=== PATIENT | male | born 2000 | race Caucasian/White ===

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

== ENCOUNTER 2019-10-05 11:31 | Emergency (ER) | payer SELFPAY ==
[~2019-10-05 11:31] MED LIST changes: +AUGMENTIN400 MG/5 M PO; +TAMIFLU 75MG CA75 MG PO
[2019-10-05] MEDS ORDERED: NAPROSYN500 MG PO (13:02)
[2019-10-05] MEDS ORDERED: TYLENOL325 M1 PO (13:02)
== END 2019-10-05 13:14 | disposition home or self-care (01) ==
LOC: ED 11:31
DX: R07.89 Other chest pain (principal); R06.02 Shortness of breath; R05 Cough; Z88.8 Allergy status to other drugs, medicaments and biological substances; Z79.899 Other long term (current) drug therapy; Z79.2 Long term (current) use of antibiotics

== ENCOUNTER 2020-10-02 13:10 | Emergency (ER) | payer OTHER ==
[~2020-10-02] VITALS: Wt 78.5 kg
[~2020-10-02 13:10] MED LIST changes: +NAPROSYN500 MG PO; +TYLENOL325 M1 PO
[2020-10-02] MEDS ORDERED: ALLEGRA ALLERG180 M2 PO (13:36)
[2020-10-02] MEDS ORDERED: PROVENTIL HFA6.7 GM INH (13:36)
[2020-10-02] MEDS ORDERED: SINGULAIR10 M1 PO (13:36)
== END 2020-10-02 13:38 | disposition home or self-care (01) ==
LOC: ED 13:10
DX: J45.909 Unspecified asthma, uncomplicated (principal); Z88.8 Allergy status to other drugs, medicaments and biological substances; Z79.899 Other long term (current) drug therapy; Z98.890 Other specified postprocedural states

== ENCOUNTER 2022-01-24 07:35 | Emergency (ER) | payer OTHER ==
[~2022-01-24] VITALS: Ht 165.1 cm; Wt 87.1 kg
[~2022-01-24 07:35] MED LIST changes: +ALLEGRA ALLERG180 M2 PO; +PROVENTIL HFA6.7 GM INH; +SINGULAIR10 M1 PO
== END 2022-01-24 09:52 | disposition home or self-care (01) ==
LOC: ED 07:35
DX: J06.9 Acute upper respiratory infection, unspecified (principal); Z20.822 Contact with and (suspected) exposure to COVID-19

== ENCOUNTER → 2022-06-07 | Outpatient (CLI) | payer OTHER ==
[2022-06-07 07:42] LABS: BASO # 0.1 10*3/uL (0.0-0.1); BASO % 0.7 % (0.0-1.0); EOS # 0.5 10*3/uL (0.0-0.4); EOS % 4.3 % (1.0-4.0); HEMATOCRIT 47.6 % (42.0-52.0); LYMPH # 3.8 10*3/uL (1.3-4.4); LYMPH % 32.3 % (27.0-41.0); MEAN CORPUSCULAR HGB 29.1 pg (27.0-31.0); MEAN CORPUSCULAR HGB CONC 34.7 g/dl (33.0-37.0); MEAN PLATELET VOLUME 9.2 fl (9.6-12.3); MONO # 0.8 10*3/uL (0.1-1.0); MONO % 6.6 % (3.0-9.0); NEUT # 6.6 10*3/uL (2.3-7.9); NEUT % 55.8 % (47.0-73.0); PLATELET COUNT AUTOMATED 348 10*3/uL (130-400); RED BLOOD COUNT 5.67 10*6/uL (4.50-5.90); RED CELL DISTRI WIDTH 12.2 % (0-14.5); WHITE BLOOD COUNT 11.8 10*3/uL (4.8-10.8)
[2022-06-07 08:16] LABS: ALKALINE PHOSPHATASE 98 U/L (45-117); BUN 11 mg/dl (7-24); CHLORIDE 107 mmol/L (98-107); CHOLESTEROL 158 mg/dL (<200); CREATININE 1.06 mg/dL (0.70-1.30); LDL CHOLESTEROL 78 mg/dL (9-159); POTASSIUM 3.6 mmol/L (3.5-5.1); SGOT/AST 14 IU/L (3-35); SGPT/ALT 31 U/L (12-78); SODIUM 141 mmol/L (136-145); TOTAL PROTEIN 7.1 gm/dL (6.4-8.2); TRIGLYCERIDES 199 mg/dl (<150)
== END | disposition home or self-care (01) ==
LOC: LAB 06-06 09:50
PROVIDERS: Physical Therapist; ATTEND Family Medicine
DX: I10 Essential (primary) hypertension (principal); E66.9 Obesity, unspecified; R73.9 Hyperglycemia, unspecified; R53.83 Other fatigue; Z68.30 Body mass index [BMI] 30.0-30.9, adult

== ENCOUNTER 2023-08-21 02:03 | Emergency (ER) | payer OTHER ==
[~2023-08-21] VITALS: Ht 165.1 cm; Wt 92.5 kg
[2023-08-21] MEDS ORDERED: ZOLOFT100 MG PO (02:21)
[2023-08-21] MEDS ORDERED: NAPROXEN500 MG PO (03:48)
[2023-08-21] MEDS ORDERED: TIZANIDINE HCL4 MG PO (03:48)
[2023-08-21] MEDS ORDERED: SENNA-S 8.6-501 EACH PO (03:48)
== END 2023-08-21 04:08 | disposition home or self-care (01) ==
LOC: ED 02:03
DX: M54.50 Low back pain, unspecified (principal); K59.00 Constipation, unspecified; J45.909 Unspecified asthma, uncomplicated; Z88.8 Allergy status to other drugs, medicaments and biological substances; Z98.890 Other specified postprocedural states; W00.1XXA Fall from stairs and steps due to ice and snow, initial encounter; Y93.89 Activity, other specified; Y92.89 Other specified places as the place of occurrence of the external cause; Y99.8 Other external cause status

== ENCOUNTER 2024-08-16 23:40 | Emergency (ER) | payer BC ==
[~2024-08-16] VITALS: Ht 167.6 cm; Wt 93.0 kg
[~2024-08-16 23:40] MED LIST changes: +NAPROXEN500 MG PO; +SENNA-S 8.6-501 EACH PO; +TIZANIDINE HCL4 MG PO; +ZOLOFT100 MG PO
[2024-08-17] MEDS ORDERED: ZITHROMAX250 MG PO (02:43)
[2024-08-17] MEDS ORDERED: PREDNISONE20 M1 PO (02:43)
[2024-08-17] MEDS ORDERED: methylPREDNISolone sod succ 125 MG VIAL IM ONE (02:45)
== END 2024-08-17 03:09 | disposition home or self-care (01) ==
LOC: ED 23:40
DX: B34.9 Viral infection, unspecified (principal); Z20.822 Contact with and (suspected) exposure to COVID-19; J45.909 Unspecified asthma, uncomplicated; Z88.1 Allergy status to other antibiotic agents; Z88.8 Allergy status to other drugs, medicaments and biological substances; Z98.890 Other specified postprocedural states